=== PATIENT | female | born 1970 | race Caucasian/White ===

== ENCOUNTER 2016-07-19 02:18 | Emergency (ER) | payer OTHER ==
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
== END 2016-07-19 04:50 | disposition home or self-care (01) ==
LOC: ER 02:18
PROC: 2W3QX1Z Immobilization of Right Lower Leg using Splint (ICD-10-PCS; principal; 2016-07-19)
DX: S52.531A Colles' fracture of right radius, initial encounter for closed fracture (principal); S82.141A Displaced bicondylar fracture of right tibia, initial encounter for closed fracture; F17.210 Nicotine dependence, cigarettes, uncomplicated; E11.9 Type 2 diabetes mellitus without complications; Z90.49 Acquired absence of other specified parts of digestive tract; Z91.040 Latex allergy status; W03.XXXA Other fall on same level due to collision with another person, initial encounter